=== PATIENT | male | born 1965 | race Caucasian/White ===

== ENCOUNTER → 2025-03-13 10:16 | Outpatient (BNVA) | payer MEDICARE, MEDICAID, SELFPAY | PROVIDERS: Family Provider Family Medicine; PCP Family Medicine; Referring Provider Family Medicine; Visit Provider Specialist | DX: M54.81 Occipital neuralgia (principal); M47.12 Other spondylosis with myelopathy, cervical region; G43.711 Chronic migraine without aura, intractable, with status migrainosus; Z98.890 Other specified postprocedural states | CPT/HCPCS: 99204 ==